=== PATIENT | male | born 1960 | race Caucasian/White ===

== ENCOUNTER 2022-12-11 07:10 | Outpatient (CLI) | payer OTHER, SELFPAY ==
--- NOTE | 2022-12-11 07:18 | CT_ITS ---
WS: [id number] LDCT LUNG CANCER SCREENING HISTORY: TOBACCO USE TECHNIQUE: Axial imaging performed from the apices to 1 cm below the costophrenic angles. Coronal and sagittal reformats are submitted with axial MIP series. All CT scans at [facility] use at least one of these dose optimization techniques: automated exposure control; mA and/or kV adjustment per patient size (includes targeted exams where dose is matched to clinical indication); or iterativ e reconstruction. DLP: 91.39 mGy.cm DIvol: Mean CTDIvol: 2.10 (mGy) COMPARISON: None available. Diagnostic quality: Motion artifact, greatest involving the upper lung padilla. Lungs: Pulmonary hyperexpansion from centrilobular emphysema. Mild bronchial wall thickening in the u pper lung padilla is related to breathing artifact. No mass or nodules identified. Heart: Normal size heart with no pericardial effusion.. Mild coronary artery calcifications. Other findings: Mild atherosclerosis aorta. Normal sized pulmonary artery. No adenopathy. No adrenal mass. Moderate thoracic spondylosis. IMPRESSION: CT/CT lung screening [id number] LUNG-RADS: 1-Negative FOLLOW UP: 12 Month: Continue annual screening with LDCT OTHER FINDINGS (S MODIFIER): None.
== END 2022-12-11 07:11 | disposition home or self-care (01) ==
PROVIDERS: PCP Internal Medicine; Visit Provider Internal Medicine
DX: Z12.2 Encounter for screening for malignant neoplasm of respiratory organs (principal); Z87.891 Personal history of nicotine dependence
CPT/HCPCS: 71271

== ENCOUNTER 2024-01-15 06:52 | Outpatient (CLI) | payer OTHER, SELFPAY ==
--- NOTE | 2024-01-15 07:01 | MR_ITS ---
WS: [id number] MRI CERVICAL SPINE NONCONTRAST TECHNIQUE: Sagittal T1, T2 and STIR imaging. Axial T2, gradient, and fiesta imaging. CLINICAL INFORMATION: PARESTHESIAS COMPARISON: None. FINDINGS: Straightening of the normal cervical lordosis. Disc space narrowing worse at C5-C6 and C6-C7 with mil d disc bulging. Cord signal is normal. Cystic-appearing T2 hyperintense lesion at the level of the hyoid with splaying of the strap muscles suspicious for thyroglossal duct cyst measuring 2.5 x 1.5 cm with small protruding anterior neck. Thy roid gland appears present. C2-C3: Mild facet arthropathy. Mild LEFT and no significant RIGHT foraminal narrowing. C3-C4: Disc osteophyte complex with endplate ridging. Advanced LEFT facet arthropathy. Moderate LEFT foraminal narrowing. C4-C5: Disc osteophyte complex with slight effacement of the ventral thecal sac. Moderate facet arthr opathy. Mild LEFT foraminal narrowing. C5-C6: Small central disc osteophyte protrusion with mild central canal stenosis. Slight indentation on the cervical cord. Moderate facet arthropathy. Moderate to severe LEFT greater than RIGHT foramina l narrowing. C6-C7: LEFT paracentral disc osteophyte protrusion with slight indentation of the cervical cord. Mild central canal stenosis. Moderate RIGHT and mild LEFT bony foraminal narrowing. C7-T1: Mild RIGHT and no significant LEFT foraminal narrowing. Spinal canal is patent. MR/MR cervical spin wo con* [id number] IMPRESSION: 1. Straightening the normal cervical lordosis with small disc osteophyte protr usions C5-C6 and C6-C7 with slight indentation of the cervical cord and mild ce ntral canal stenosis. 2. Moderate to severe bony foraminal narrowing worse at LEFT C3-C4, bilateral C5-6 worse on the LEFT, and RIGHT C6-7. 3. Advanced facet arthropathy LEFT C3-4. 4. T2 hyperintense cystic-appearing lesion suspicious for thyroglossal duct cy st at the level of the hyoid with small protruding anterior neck. Lesion in tot al measures approximately 2.5 x 1.5 cm. Recommend ENT consultation.
--- NOTE | 2024-01-15 07:02 | MR_ITS ---
WS: [id number] MRI THORACIC SPINE WITHOUT CONTRAST TECHNIQUE: Sagittal T1, T2 and STIR imaging. Axial T2 imaging. Noncontrast imaging obtained. CLINICAL INFORMATION: PARESTHESIAS COMPARISON: None. FINDINGS: Mild thoracic curve. Mild thoracic kyphosis. Anterior hypertrophic changes thoracic spine. No acute c ompression fractures. Mild annular bulge in the mid thoracic spine T7-T8, T8-T9, T9-T10. A few Schmor l's nodes in the mid and lower thoracic spine. Moderate facet arthropathy lower thoracic spine. Cord signal is normal. Tiny central protrusion T5-6. Tiny RIGHT paracentral protrusion at T6-T7 with slight contact of the t horacic cord. Tiny central protrusion T7-T8 slightly contacts the thoracic cord. Tiny central protrus ion T8-9 and T9-10 with slight contact of the thoracic cord. Mild central canal stenosis at these lev els. Mild bilateral foraminal narrowing T9-10, T10-11, and LEFT T11-12. Normal caliber thoracic aorta. Adrenal glands are normal. MR/MR thoracic spin wo con* [id number] IMPRESSION: 1. No acute compression fractures. 2. Tiny central disc protrusions at T6-T9 with slight contact of the thoracic cord and mild central canal stenosis. Prominent dorsal epidural fat contributes to stenosis. 3. Cord signal is normal. 4. Moderate facet arthropathy lower thoracic spine.
== END 2024-01-15 06:53 | disposition home or self-care (01) ==
LOC: RAD 06:53
PROVIDERS: PCP Internal Medicine; Visit Provider Internal Medicine
DX: M46.94 Unspecified inflammatory spondylopathy, thoracic region (principal); M25.78 Osteophyte, vertebrae; M47.892 Other spondylosis, cervical region; M99.61 Osseous and subluxation stenosis of intervertebral foramina of cervical region; R22.1 Localized swelling, mass and lump, neck; R20.2 Paresthesia of skin
CPT/HCPCS: 72141; 72146